=== PATIENT | male | born 1965 | race Caucasian/White ===

== ENCOUNTER 2021-11-04 12:11 | Inpatient (IN) | payer OTHER ==
[~2021-11-04] VITALS: Ht 188 cm; Wt 122.5 kg
[2021-11-04] MEDS ORDERED: HYDR25TA2 PO (12:46)
[2021-11-04] MEDS ORDERED: SODIUM CHLORIDE 0.9% 1,000 ML IV ONE ×2 (13:30→13:45)
[2021-11-04 13:50] LABS: BASOPHILS % (AUTO) 0.5 % (0.0-2.0); EOSINOPHILS % (AUTO) 0.1 % (1.0-6.0); HEMATOCRIT 49.7 % (41-53); HEMOGLOBIN 17.5 g/dL (13.5-17.5); LYMPHOCYTES # (AUTO) 1.3 K/uL (1.0-4.8); LYMPHOCYTES % (AUTO) 14.2 % (22.0-44.0); MEAN CORPUSCULAR HEMOGLOBIN 29.9 pg (26.0-34.0); MEAN CORPUSCULAR HGB CONC 35.1 G/dL (31.0-37.0); MEAN CORPUSCULAR VOLUME 85 fL (80-100); MONOCYTES # (AUTO) 0.6 K/uL (0.1-1.0); MONOCYTES % (AUTO) 6.4 % (2.0-9.0); NEUTROPHILS # (AUTO) 7.5 K/uL (1.8-7.7); NEUTROPHILS % (AUTO) 78.8 % (40.0-70.0); PLATELET COUNT (AUTO) 286 K/uL (150-450); RED BLOOD CELL COUNT(AUTO) 5.83 MIL/uL (4.50-5.90); RED CELL DISTRIBUTION WIDTH 14.4 % (11.5-14.5)
[2021-11-04 14:00] LABS: ANION GAP 8 mmol/L (8-16); CALCIUM, TOTAL 8.7 mg/dL (8.8-10.5); CARBON DIOXIDE 29 mmol/L (22-29); CHLORIDE 100 mmol/L (98-107); CREATININE 1.07 mg/dL (0.60-1.30); GLOMERULAR FILTR. RATE CALC > 60 mL/min (>60); GLUCOSE,RANDOM 102 mg/dL (70-110); POTASSIUM 4.5 mmol/L (3.5-5.1); SODIUM SERUM 137 mmol/L (136-145); UREA NITROGEN, BLOOD 20 mg/dL (7-18)
[2021-11-04 14:16] LABS: B-TYPE NATRIURETIC PEPTIDE 25 pg/mL (0-100)
[2021-11-04 14:26] LABS: ALANINE AMINOTRANSFERASE 41 U/L (12-78); ALBUMIN 3.8 g/dL (3.4-5.0); ALKALINE PHOSPHATASE 60 U/L (46-116); ASPARTATE AMINOTRANSFERASE 25 U/L (15-37); BILIRUBIN,TOTAL 1.1 mg/dL (0.1-1.0); CREATINE KINASE, TOTAL ONLY 166 U/L (39-308); LIPASE 69 U/L (73-393); TOTAL PROTEIN, SERUM 7.6 g/dL (6.4-8.2)
[2021-11-04 15:44] LABS: COVID AG,FIA SOURCE NASAL SWAB
[2021-11-04] MEDS ORDERED: CloNIDine HCL 0.1 MG TABLET PO PRN (19:15)
[2021-11-04] MEDS ORDERED: ONDANSETRON HCL 4 MG/2 ML VIAL IVP PRN (19:15)
[2021-11-04] MEDS ORDERED: MAG HYDROX/AL HYDROX/SIMETH ES 30 ML SUSPENSION UDCUP PO PRN (19:15)
[2021-11-04] MEDS ORDERED: IPRATROPIUM BROMIDE 0.5 MG/2.5 ML NEB SOLUTION NEB PRN (19:15)
[2021-11-04] MEDS ORDERED: ACETAMINOPHEN 325 MG TABLET PO PRN (19:15)
[2021-11-04] MEDS ORDERED: IBUPROFEN 600 MG TABLET PO PRN (19:15)
[2021-11-04] MEDS ORDERED: BACLOFEN 10 MG TABLET PO PRN (19:15)
[2021-11-04] MEDS ORDERED: BISACODYL 10 MG RECTAL RECTAL SUPPOSITORY PR PRN (19:15)
[2021-11-04] MEDS ORDERED: ALBUTEROL SULFATE 2.5 MG/0.5 ML NEB SOLUTION NEB PRN (19:15)
[2021-11-04] MEDS ORDERED: MAGNESIUM HYDROXIDE SUSPENSION 30 ML UDCUP PO PRN (19:15)
[2021-11-04] MEDS ORDERED: LOPERAMIDE HCL 2 MG/15 ML SUSPENSION UDCUP PO PRN (19:15)
[2021-11-04] MEDS ORDERED: HydrOXYzine PAMOATE 50 MG CAPSULE PO PRN (19:15)
[2021-11-04 19:50] VITALS: BP 175/114
[2021-11-04] MEDS: LORazepam 1 MG TABLET PO PRN (21:21)
[2021-11-04] MEDS: CloNIDine HCL 0.1 MG TABLET PO SCH (21:21)
[2021-11-04] MEDS: DOCUSATE SODIUM 100 MG CAPSULE PO SCH (21:22)
[2021-11-04] MEDS: SODIUM CHLORIDE 0.45% 1,000 ML IV SCH (21:47)
[2021-11-04 23:50] VITALS: BP 153/73
[2021-11-04] MEDS: ZOLPIDEM TARTRATE 5 MG TABLET PO PRN (23:51)
[2021-11-04] MEDS: HEPARIN SODIUM,PORCINE 5,000 UNITS/ML VIAL SQ SCH (23:54)
[2021-11-05 04:50] VITALS: BP 156/109
[2021-11-05] MEDS: LORazepam 1 MG TABLET PO PRN (04:52)
[2021-11-05] MEDS: DICYCLOMINE HCL 10 MG CAPSULE PO PRN (04:52)
[2021-11-05] MEDS: HEPARIN SODIUM,PORCINE 5,000 UNITS/ML VIAL SQ SCH ×3 (08:09→23:52)
[2021-11-05] MEDS: CloNIDine HCL 0.1 MG TABLET PO SCH ×2 (08:09→20:20)
[2021-11-05] MEDS: DOCUSATE SODIUM 100 MG CAPSULE PO SCH ×2 (08:09→20:19)
[2021-11-05 08:37] VITALS: BP 138/90
[2021-11-05] MEDS ORDERED: PANTOPRAZOLE SODIUM 40 MG/VIAL IVP SCH (09:00)
[2021-11-05 09:25] VITALS: BP 138/90
[2021-11-05] MEDS: SODIUM CHLORIDE 0.45% 1,000 ML IV SCH (09:58)
[2021-11-05] MEDS ORDERED: PNEUMOCOCCAL VACCINE POLYVALENT 0.5 ML VIAL [PPSV23] IM. ONE (10:30)
[2021-11-05] MEDS ORDERED: INFLUENZA VIRUS VACCINE QVS 2021-22 (6MO+)/PF 60 MCG/0.5 ML SYRINGE IM. ONE (10:30)
[2021-11-05 13:08] LABS: APPEARANCE,URINE CLEAR (CLEAR); BILIRUBIN,URINE NEGATIVE (NEGATIVE); GLUCOSE, URINE (UA) NEGATIVE (NEGATIVE); LEUKOCYTE ESTERASE ,URINE NEGATIVE (NEGATIVE); NITRATE,URINE NEGATIVE (NEGATIVE); OCCULT BLOOD,URINE NEGATIVE (NEGATIVE); PH,URINE 6.5 (5.0-8.0); PROTEIN,URINE TRACE mg/dL (NEGATIVE); SPECIFIC GRAVITIY, URINE 1.022 (1.003-1.030)
[2021-11-05 13:17] LABS: BACTERIA,URINE None Seen /HPF (None Seen); RBC,URINE None Seen /HPF (0-2); SQUAMOUS EPITHELIAL CELL,UR Few /LPF (None Seen); WBC,URINE 0-2 /HPF (0-5); YEAST,URINE None Seen /HPF (None Seen)
[2021-11-05 17:55] VITALS: BP 127/83
[2021-11-05] MEDS: ACETAMINOPHEN 325 MG TABLET PO PRN (20:20)
[2021-11-05 20:52] VITALS: BP 141/101
[2021-11-06] MEDS: TraZODone HCL 50 MG TABLET PO PRN ×2 (01:18→20:17)
[2021-11-06 05:29] VITALS: BP 153/101
[2021-11-06] MEDS: CloNIDine HCL 0.1 MG TABLET PO SCH ×2 (08:21→20:17)
[2021-11-06] MEDS: HEPARIN SODIUM,PORCINE 5,000 UNITS/ML VIAL SQ SCH ×3 (08:22→23:32)
[2021-11-06] MEDS: PANTOPRAZOLE SODIUM 40 MG DR TABLET PO SCH (08:22)
[2021-11-06] MEDS: DOCUSATE SODIUM 100 MG CAPSULE PO SCH ×2 (08:22→20:17)
[2021-11-06 08:50] VITALS: BP 163/101
[2021-11-06 10:00] VITALS: BP 163/101
[2021-11-06] MEDS ORDERED: CloNIDine HCL 0.2 MG TABLET PO ONE (14:30)
[2021-11-06] MEDS: DICYCLOMINE HCL 10 MG CAPSULE PO PRN ×2 (14:42→23:32)
[2021-11-06] MEDS: PROMETHAZINE HCL 25 MG TABLET PO PRN ×2 (16:36→20:16)
[2021-11-06 16:54] VITALS: BP 126/69
[2021-11-06 20:10] VITALS: BP 154/84
[2021-11-06] MEDS: ACETAMINOPHEN 325 MG TABLET PO PRN (20:17)
[2021-11-06] MEDS: ZOLPIDEM TARTRATE 5 MG TABLET PO PRN (23:32)
[2021-11-07 04:55] VITALS: BP 157/98
[2021-11-07] MEDS: CloNIDine HCL 0.1 MG TABLET PO SCH (06:53)
[2021-11-07 07:31] VITALS: BP 145/95
[2021-11-07] MEDS: DOCUSATE SODIUM 100 MG CAPSULE PO SCH ×2 (08:34→20:05)
[2021-11-07] MEDS: PANTOPRAZOLE SODIUM 40 MG DR TABLET PO SCH (08:34)
[2021-11-07] MEDS: HEPARIN SODIUM,PORCINE 5,000 UNITS/ML VIAL SQ SCH ×2 (08:38→16:09)
[2021-11-07] MEDS ORDERED: CLON0.2T PO (11:40)
[2021-11-07 15:57] VITALS: BP 148/94
[2021-11-07] MEDS: ZOLPIDEM TARTRATE 5 MG TABLET PO PRN (19:48)
[2021-11-07 20:00] VITALS: BP 138/83
[2021-11-07] MEDS ORDERED: CloNIDine HCL 0.1 MG TABLET PO SCH (21:00)
[2021-11-07] MEDS: TraZODone HCL 50 MG TABLET PO PRN (21:32)
[2021-11-08] MEDS: HEPARIN SODIUM,PORCINE 5,000 UNITS/ML VIAL SQ SCH (01:30)
[2021-11-08 05:08] VITALS: BP 132/84
== END 2021-11-08 06:40 | DRG 897 ==
LOC: EMS 12:18 → 6S 19:40
PROVIDERS: ADMIT Hospitalist; ATTEND Hospitalist
DX: F15.23 Other stimulant dependence with withdrawal (principal); F17.200 Nicotine dependence, unspecified, uncomplicated; I10 Essential (primary) hypertension; Z96.659 Presence of unspecified artificial knee joint; Z20.822 Contact with and (suspected) exposure to COVID-19
CPT/HCPCS: 74022; 80053; 81001; 82550; 83690; 83880; 84484; 85025; 93005; 99285; C9113; G0238; J1644